=== PATIENT | female | born 1995 | race Hispanic/Latino ===

== ENCOUNTER 2019-12-02 15:11 | Emergency (ER) | payer SELFPAY ==
[2019-12-02] MEDS ORDERED: LIDOCAINE 1% MPF 30 ML VIAL ONE (15:51)
--- NOTE | 2019-12-02 15:56 | EDPHYS ---
Physician Documentation [facility] Name: Kari Solorzano Age: 24 yrs Sex: Female : 1995 Arrival Date: 12/02/2019 Time: 15:13 Bed 13 Private MD: ED Physician Hugo Alvarez HPI: 12/01 15:22 This 24 yrs old Female presents to ER via Unassigned with complaints of Fall jr8 Injury, Laceration To Leg. 15:22 Details of fall: The patient fell and struck a metal surface. Onset: The jr8 symptoms/episode began/occurred 14 hour(s) ago. Associated injuries: The patient sustained right leg, abrasion, laceration, left leg, laceration. Pt states that she tripped and fell at 1am last night into a metal gate, injuring both legs. States that she cleaned wounds, and put antibiotic ointment on the lacerations. Reports that her main concern is updating her Tetanus immunization. Denies LOC, head injury, or any other symptoms at this time.. Historical: - Allergies: 15:15 No Known Allergies; aa5 - PMHx: 15:15 None; aa5 - PSHx: 15:15 None; aa5 - Immunization history:: Last tetanus immunization: unknown. - Social history:: Smoking status: Patient denies any tobacco usage or history of. ROS: 15:25 Constitutional: Negative for fever, chills, and weight loss, Neck: Negative for injury, jr8 pain, and swelling, Cardiovascular: Negative for chest pain, palpitations, and edema, Respiratory: Negative for shortness of breath, cough, wheezing, and pleuritic chest pain, Back: Negative for injury and pain. 15:25 MS/extremity: Positive for abrasion, laceration, of the right leg and left leg. Exam: 15:25 Constitutional: This is a well developed, well nourished patient who is awake, alert, jr8 and in no acute distress. Head/Face: Normocephalic, atraumatic. Neck: Trachea midline, no thyromegaly or masses palpated, and no cervical lymphadenopathy. Supple, full range of motion without nuchal rigidity, or vertebral point tenderness. No Meningismus. Cardiovascular: Regular rate and rhythm with a normal S1 and S2. No gallops, murmurs, or rubs. Normal PMI, no JVD. No pulse deficits. Respiratory: Lungs have equal breath sounds bilaterally, clear to auscultation and percussion. No rales, rhonchi or wheezes noted. No increased work of breathing, no retractions or nasal flaring. Back: No spinal tenderness. No costovertebral tenderness. Full range of motion. 15:25 Skin: injury, abrasion(s), moderate sized abrasion noted, of the right leg, laceration(s), that can be described as irregular, superficial laceration of the R knee. Vital Signs: 15:16 BP 146 / 86; Pulse 85; Resp 18 S; Temp 98.5(O); Pulse Ox 98% on R/A; aa5 15:54 BP 146 / 86; Pulse 80; Resp 18; Pulse Ox 99% on R/A; ks7 16:18 BP 114 / 75; Pulse 85; Resp 18; Temp 98.6(O); Pulse Ox 96% on R/A; Pain 0/10; ks7 Laceration: 15:55 Wound Repair of 2.5cm ( 1.0in ) subcutaneous laceration to left leg. Irregularly jr8 shaped.. Distal neuro/vascular/tendon intact. Anesthesia: Local anesthetic administered with 2 mls of 1% lidocaine. Wound prep: Extensive cleansing with betadine, Wound irrigation with saline, Wound explored extensively. Skin closed with 2 4-0 Prolene using interrupted sutures and sterile technique. Patient tolerated well. MDM: 15:28 Patient medically screened. jr8 15:55 Data reviewed: vital signs, nurses notes, and as a result, I will discharge patient. jr8 Data interpreted: Pulse oximetry: on room air is 95 %. Interpretation: normal. Counseling: I had a detailed discussion with the patient and/or guardian regarding: the historical points, exam findings, and any diagnostic results supporting the discharge/admit diagnosis, the need for outpatient follow up, a family practitioner, to return to the emergency department if symptoms worsen or persist or if there are any questions or concerns that arise at home. Administered Medications: 15:55 Drug: Lidocaine (1 %) 20 ml {Note: administered by Enriqueta HANDS ASSEMBLER.} Volume: 20 ml; Route: ks7 Infiltration; 16:18 Drug: Tetanus-Diphtheria Toxoid Adult 0.5 ml {Sheltered Workshop Executive Director: [employer]. Exp: ks7 06/08/2021. Lot #: [id number]. } Route: IM; Site: right deltoid; Disposition: 16:20 Co-signature as Attending Physician, Hugo Alvarez MD. rn Disposition: 12/02/19 15:56 Discharged to Home. Impression: Laceration without foreign body, left lower leg, Laceration without foreign body, right lower leg. - Condition is Stable. - Discharge Instructions: Laceration Care, Adult. - Medication Reconciliation Form, Thank You Letter, Antibiotic Education, Prescription Opioid Use form. - Follow up: Private Physician; When: 7 - 10 days; Reason: Wound Recheck, Recheck today's complaints, Continuance of care, Staple/Suture removal, Re-evaluation by your physician. - Problem is new. - Symptoms have improved. Signatures: Hugo Alvarez MD MD rn Calderon, Audri RN RN aa5 Kasi Romo PA PA jr8 Yuly Washington RN RN ks7 Corrections: (The following items were deleted from the chart) 15:26 15:25 Skin: jr8 jr8 16:03 15:25 Skin: injury, abrasion(s), moderate sized abrasion noted, of the right leg, jr8 laceration(s), jr8 16:19 15:56 12/02/2019 15:56 Discharged to Home. Impression: Laceration without foreign body, ks7 left lower leg; Laceration without foreign body, right lower leg. Condition is Stable. Forms are Medication Reconciliation Form, Thank You Letter, Antibiotic Education, Prescription Opioid Use. Follow up: Private Physician; When: 7 - 10 days; Reason: Wound Recheck, Recheck today's complaints, Continuance of care, Staple/Suture removal, Re-evaluation by your physician. Problem is new. Symptoms have improved. jr8
--- NOTE | 2019-12-02 15:56 | ER ---
Nurse's Notes [facility] Name: Kari Solorzano Age: 24 yrs Sex: Female : 1995 Arrival Date: 12/02/2019 Time: 15:13 Bed 13 Private MD: Diagnosis: Laceration without foreign body, left lower leg;Laceration without foreign body, right lower leg Presentation: 12/01 15:15 Chief complaint: Patient states: "I fell around 1 am because I had a few drinks and it aa5 was dark outside, I fell over a metal thing and cut my leg but I think I just need a tetanus shot". Laceration noted to right knee and left lower major. 15:15 Coronavirus screen: Client denies travel out of the [place] in the last 14 days. At this aa5 time, the client does not indicate any symptoms associated with coronavirus-19. Ebola Screen: Patient negative for fever greater than or equal to 101.5 degrees Fahrenheit, and additional compatible Ebola Virus Disease symptoms. Initial Sepsis Screen: Does the patient meet any 2 criteria? No. Patient's initial sepsis screen is negative. Does the patient have a suspected source of infection? No. Patient's initial sepsis screen is negative. Risk Assessment: Do you want to hurt yourself or someone else? Patient reports no desire to harm self or others. Onset of symptoms was December 02, 2019. 15:15 Acuity: TAVON 4 aa5 15:15 Method Of Arrival: Ambulatory aa5 Historical: - Allergies: 15:15 No Known Allergies; aa5 - PMHx: 15:15 None; aa5 - PSHx: 15:15 None; aa5 - Immunization history:: Last tetanus immunization: unknown. - Social history:: Smoking status: Patient denies any tobacco usage or history of. Screenin:52 Abuse screen: Denies threats or abuse. Denies injuries from another. Nutritional ks7 screening: No deficits noted. Tuberculosis screening: No symptoms or risk factors identified. Fall Risk None identified. Assessment: 15:25 Reassessment: Laceration to right knee and left lower leg cleaned with Hibiclens and aa5 saline per PA. 15:52 General: Appears in no apparent distress. uncomfortable, Behavior is calm, cooperative. ks7 Pain: Complains of pain in right leg. Derm: Laceration to R knee and L lower leg Reports pt fell last night approx 0100. Vital Signs: 15:16 BP 146 / 86; Pulse 85; Resp 18 S; Temp 98.5(O); Pulse Ox 98% on R/A; aa5 15:54 BP 146 / 86; Pulse 80; Resp 18; Pulse Ox 99% on R/A; ks7 16:18 BP 114 / 75; Pulse 85; Resp 18; Temp 98.6(O); Pulse Ox 96% on R/A; Pain 0/10; ks7 ED Course: 15:13 Patient arrived in ED. ag5 15:15 Arm band placed on Patient placed in an exam room, on a stretcher. aa5 15:21 Kasi Romo PA is PHCP. jr8 15:21 Hugo Alvarez MD is Attending Physician. jr8 15:27 Yuly Washington RN is Primary Nurse. ks7 15:37 Triage completed. aa5 15:52 No apparent distress. Nurse Practitioner and/or Physician Able Bodied Tankerman to see patient. at ks7 bedside lac rapair to R knee and leg. 15:52 Patient has correct armband on for positive identification. Bed in low position. Call ks7 light in reach. 15:52 No provider procedures requiring assistance completed. Patient did not have IV access ks7 during this emergency room visit. Administered Medications: 15:55 Drug: Lidocaine (1 %) 20 ml {Note: administered by Enriqueta BIODIESEL ENGINE SPECIALIST.} Volume: 20 ml; Route: ks7 Infiltration; 16:18 Drug: Tetanus-Diphtheria Toxoid Adult 0.5 ml {Special Effects Person: [employer]. Exp: ks7 06/08/2021. Lot #: [id number]. } Route: IM; Site: right deltoid; Outcome: 15:56 Discharge ordered by . jr8 16:19 Discharged to home ambulatory. ks7 16:19 Condition: good 16:19 Discharge instructions given to patient, Instructed on discharge instructions, follow up and referral plans. Demonstrated understanding of instructions, follow-up care, wound care, Prescriptions given X 16:19 Patient left the ED. ks7 Signatures: Esmer Henson RN RN 5 Kasi Romo PA PA 8 Domenic Rivas [facility] Yuly Washington RN RN ak7 Corrections: (The following items were deleted from the chart) 15:39 15:15 Chief complaint: Patient states: "I fell around 1 am over a metal thing and cut aa5 my leg but I think I just need a tetanus shot" aa5 15:56 15:54 BP 117 / 74; Pulse 123bpm; Resp 18bpm; Pulse Ox 94% RA; ks7 ks7
[2019-12-02] MEDS ORDERED: TETANUS & DIPHTHERIA TOX,ADULT 0.5 ML VIAL ONE (16:25)
[2019-12-02 16:30] VITALS: BP 114/75; TEMP 98.6; O2SAT 96
== END 2019-12-02 16:19 | disposition home or self-care (01) ==
LOC: ER 15:11
PROC: 0JQP0ZZ Repair Left Lower Leg Subcutaneous Tissue and Fascia, Open Approach (ICD-10-PCS; principal; 2019-12-02)
DX: S81.812A Laceration without foreign body, left lower leg, initial encounter (principal); S81.811A Laceration without foreign body, right lower leg, initial encounter; W26.8XXA Contact with other sharp object(s), not elsewhere classified, initial encounter; Y93.9 Activity, unspecified; Y92.9 Unspecified place or not applicable; Z23 Encounter for immunization
CPT/HCPCS: 90471; 90714; 99283

== ENCOUNTER 2019-12-12 19:53 | Emergency (ER) | payer SELFPAY ==
--- NOTE | 2019-12-12 20:21 | ER ---
Nurse's Notes [facility] Name: Kari Solorzano Age: 24 yrs Sex: Female : 1995 Arrival Date: 12/12/2019 Time: 19:56 Bed Waiting Private MD: Diagnosis: Presentation: 12/11 20:07 Chief complaint: Patient states: Needs stitches removed from left lower leg. No fever ll1 or drainage. Placed here 10 days ago. Coronavirus screen: Client denies travel out of the [place] in the last 14 days. At this time, the client does not indicate any symptoms associated with coronavirus-19. Ebola Screen: Patient denies travel to an Ebola-affected area in the 21 days before illness onset. Initial Sepsis Screen: Does the patient meet any 2 criteria? No. Patient's initial sepsis screen is negative. Risk Assessment: Do you want to hurt yourself or someone else? Patient reports no desire to harm self or others. Onset of symptoms was December 02, 2019. 20:07 Method Of Arrival: Ambulatory ll1 20:07 Acuity: TAVON 5 ll1 20:14 Initial Sepsis Screen: Does the patient have a suspected source of infection? Yes: Skin ll1 breakdown/wound. MANAGER SHAREPOINT: 20:19 LMP N/A - control method ll1 Historical: - Allergies: 20:07 No Known Allergies; ll1 - PMHx: 20:07 None; ll1 - PSHx: 20:07 None; ll1 - Immunization history:: Flu vaccine status is unknown. - Social history:: Smoking status: Patient denies any tobacco usage or history of. Patient/guardian denies using alcohol, street drugs. Screenin:14 Abuse screen: Denies threats or abuse. Nutritional screening: No deficits noted. ll1 Tuberculosis screening: No symptoms or risk factors identified. Fall Risk None identified. Total Chacon Fall Scale indicates No Risk (0-24 pts). Assessment: 20:11 General: Appears in no apparent distress. Behavior is calm, cooperative. Pain: Denies ll1 pain. Derm: Wound noted L lower leg Reports needs stitches removed from left lower leg (2). No redness, drainage or fever. Vital Signs: 20:07 BP 134 / 87; Pulse 64; Resp 17; Temp 97.5; Pulse Ox 99% ; Weight 72.57 kg; Height 5 ft. ll1 2 in. (157.48 cm); Pain 0/10; 20:07 Body Mass Index 29.26 (72.57 kg, 157.48 cm) ll1 ED Course: 19:56 Patient arrived in ED. bp1 20:07 Arm band placed on. ll1 20:09 Triage completed. ll1 20:14 Patient has correct armband on for positive identification. Bed in low position. Call ll1 light in reach. Side rails up X 1. 20:14 No provider procedures requiring assistance completed. Patient did not have IV access ll1 during this emergency room visit. Administered Medications: No medications were administered Outcome: 20:18 Medical screen evaluation completed per provider. will return in 4 more days for suture ll1 removal, not ready for removal yet. 20:18 Condition: stable 20:18 Following a medical screening exam, the patient was provided information regarding alternative care sites and resources available per registration personnel. 20:20 Patient left the ED. ll1 Signatures: Hung Stack RN RN ll1 Mayra Yuan bp1
[2019-12-12 21:36] VITALS: BP 134/87; TEMP 97.5; O2SAT 99
== END 2019-12-12 20:20 | disposition left against medical advice (07) ==
LOC: ER 19:53
DX: Z53.21 Procedure and treatment not carried out due to patient leaving prior to being seen by health care provider (principal)
CPT/HCPCS: 99281

== ENCOUNTER 2019-12-17 18:06 | Emergency (ER) | payer SELFPAY ==
--- NOTE | 2019-12-17 18:58 | ER ---
Nurse's Notes [facility] Name: Kari Solorzano Age: 24 yrs Sex: Female : 1995 Arrival Date: 12/17/2019 Time: 18:11 Bed 25 Private MD: Diagnosis: Encounter for removal of sutures Presentation: 12/16 18:16 Chief complaint: Sutures to left lower leg 12/01, here for removal. Coronavirus screen: hb At this time, the client does not indicate any symptoms associated with coronavirus-19. Ebola Screen: No symptoms or risks identified at this time. Initial Sepsis Screen: Does the patient meet any 2 criteria? No. Patient's initial sepsis screen is negative. Does the patient have a suspected source of infection? No. Patient's initial sepsis screen is negative. Risk Assessment: Do you want to hurt yourself or someone else? Patient reports no desire to harm self or others. Onset of symptoms was December 17, 2019. 18:16 Method Of Arrival: Ambulatory hb 18:16 Acuity: TAVON 4 hb Triage Assessment: 18:17 General: Appears in no apparent distress. Behavior is calm, cooperative. Pain: Denies hb pain. Neuro: Level of Consciousness is awake, alert, obeys commands, Oriented to person, place, time, situation. Cardiovascular: Patient's skin is warm and dry. Respiratory: Respiratory effort is even, unlabored, Respiratory pattern is regular, symmetrical. Derm: Wound noted anterior aspect of left ankle. Historical: - Allergies: 18:17 No Known Allergies; hb - Home Meds: 18:17 None [Active]; hb - PMHx: 18:17 None; hb - PSHx: 18:17 None; hb - Immunization history:: Adult Immunizations up to date. - Social history:: Smoking status: Patient denies any tobacco usage or history of. Screenin:18 Abuse screen: Denies threats or abuse. Denies injuries from another. Nutritional hb screening: No deficits noted. Tuberculosis screening: No symptoms or risk factors identified. Fall Risk None identified. Assessment: 18:18 General: SEE TRIAGE. hb Vital Signs: 18:16 BP 122 / 76; Pulse 88; Resp 16; Temp 97.7; Pulse Ox 100% on R/A; Pain 0/10; hb ED Course: 18:11 Patient arrived in ED. ds1 18:14 Bryce Craven PA is PHCP. [facility] 18:14 Rashard Casanova MD is Attending Physician. [facility] 18:16 Misti Nicole, RN is Primary Nurse. hb 18:17 Triage completed. hb 18:17 Arm band placed on. hb 18:18 Patient has correct armband on for positive identification. Bed in low position. Call hb light in reach. 19:04 No provider procedures requiring assistance completed. Patient did not have IV access hb during this emergency room visit. Administered Medications: No medications were administered Outcome: 18:58 Discharge ordered by . [facility] 19:04 Discharged to home ambulatory. hb 19:04 Condition: stable 19:04 Discharge instructions given to patient, Instructed on discharge instructions, follow up and referral plans. Demonstrated understanding of instructions, follow-up care. 19:05 Patient left the ED. hb Signatures: Bryce Craven PA PA [facility] Salma Bear ds1 Misti Nicole, RN RN hb
--- NOTE | 2019-12-17 18:58 | EDPHYS ---
Physician Documentation [facility] Name: Kari Solorzano Age: 24 yrs Sex: Female : 1995 Arrival Date: 12/17/2019 Time: 18:11 Bed 25 Private MD: ED Physician Rashard Casanova HPI: 12/16 18:54 This 24 yrs old Female presents to ER via Ambulatory with complaints of Suture jmm Removal. 18:54 The patient has sutures on the anterior aspect of left ankle. Sutures/caitlin progress: jmm The patient has no c/o's. The wound is well-healing with no redness, swelling, discharge, or dehiscence reported. The patient has not experienced similar symptoms in the past. Sutures placed approx 15 days ago. Denies fever, increased pain, purulent drainage. . Historical: - Allergies: 18:17 No Known Allergies; hb - Home Meds: 18:17 None [Active]; hb - PMHx: 18:17 None; hb - PSHx: 18:17 None; hb - Immunization history:: Adult Immunizations up to date. - Social history:: Smoking status: Patient denies any tobacco usage or history of. ROS: 18:54 Constitutional: Negative for fever, chills, and weight loss, Cardiovascular: Negative jmm for chest pain, palpitations, and edema, Respiratory: Negative for shortness of breath, cough, wheezing, and pleuritic chest pain. 18:54 Skin: Positive for laceration(s). 18:54 All other systems are negative. Exam: 18:54 Constitutional: This is a well developed, well nourished patient who is awake, alert, jmm and in no acute distress. Cardiovascular: Regular rate and rhythm. No edema appreciated Respiratory: Normal respirations, no respiratory distress appreciated 18:54 Head/Face: atraumatic. Eyes: EOMI, no conjunctival erythema appreciated ENT: Moist Mucus Membranes Neck: Trachea midline, Supple Chest/axilla: Normal chest wall appearance and motion. Abdomen/GI: Non distended, soft Back: Normal ROM 18:54 Skin: 18:54 Skin: healing laceration noted to the left lower leg. 18:54 Neuro: Orientation: is normal, Mentation: is normal, Memory: is normal. 18:54 Psych: Behavior/mood is pleasant, cooperative. Vital Signs: 18:16 BP 122 / 76; Pulse 88; Resp 16; Temp 97.7; Pulse Ox 100% on R/A; Pain 0/10; hb Procedures: 18:57 Suture/Staple removal: Removed 1 sutures, from left leg, site appears well healed, iglesia Patient tolerated well. MDM: 18:50 Patient medically screened. [facility] 18:57 Data reviewed: vital signs, nurses notes. Counseling: I had a detailed discussion with iglesia the patient and/or guardian regarding: the historical points, exam findings, and any diagnostic results supporting the discharge/admit diagnosis, the need for outpatient follow up, to return to the emergency department if symptoms worsen or persist or if there are any questions or concerns that arise at home. Administered Medications: No medications were administered Disposition: 12/17/19 18:58 Discharged to Home. Impression: Encounter for removal of sutures. - Condition is Stable. - Discharge Instructions: Suture Removal, Care After. - Medication Reconciliation Form, Thank You Letter, Antibiotic Education, Prescription Opioid Use form. - Follow up: Private Physician; When: As needed; Reason: Recheck today's complaints, Continuance of care, Re-evaluation by your physician. Addendum: 12/18/2019 19:51 Co-signature as Attending Physician, Rashard Casanova MD I agree with the assessment and k dr plan of care. Signatures: Rashard Casanova MD MD [facility] Bryce Craven PA PA [facility] Misti Nicole RN RN hb Corrections: (The following items were deleted from the chart) 12/16 19:05 18:58 12/17/2019 18:58 Discharged to Home. Impression: Encounter for removal of hb sutures. Condition is Stable. Forms are Medication Reconciliation Form, Thank You Letter, Antibiotic Education, Prescription Opioid Use. Follow up: Private Physician; When: As needed; Reason: Recheck today's complaints, Continuance of care, Re-evaluation by your physician. iglesia
[2019-12-22 03:54] VITALS: BP 122/76; TEMP 97.7; O2SAT 100
== END 2019-12-17 19:05 | disposition home or self-care (01) ==
LOC: ER 18:06
DX: Z48.02 Encounter for removal of sutures (principal)
CPT/HCPCS: 99281